=== PATIENT | female | born 1995 | race Caucasian/White ===

== ENCOUNTER 2023-08-30 18:01 | Outpatient (CLI) | payer OTHER, SELFPAY ==
--- NOTE | 2023-08-30 18:02 | PM.PROC.1 ---
Procedures Date/Time Date of procedure: 08/30/23 Time of procedure: 18:01 General Procedure description: NST: Patient here for NST for decreased movement @ 26w Baseline:145 Variability: moderate Accelerations: present Decelerations: none Impression: Reactive NST Plan: -Reviewed reactive NST and reassuring movement on monitors. -Reviewed expectant movement in third trimester. -Reviewed kick counts to do as needed. -follow up with provider as scheduled.
== END 2023-08-30 19:20 | disposition home or self-care (01) ==
LOC: LABOR 18:16 → OB 09-03 08:26
PROVIDERS: Referring Provider Obstetrics & Gynecology; Visit Provider Obstetrics & Gynecology
DX: O36.8120 Decreased fetal movements, second trimester, not applicable or unspecified (principal); Z3A.26 26 weeks gestation of pregnancy
CPT/HCPCS: 59025; G0378; G0379

== ENCOUNTER → 2023-10-22 15:25 | Outpatient (CLI) | payer OTHER, SELFPAY ==
--- NOTE | 2023-10-22 | DI.US.S_ITS ---
PROCEDURE: US OB LIMITED INDICATIONS: GROWTH; BPP OUTSIDE/PRIOR DATING DATA: Last menstrual period (LMP): 02/25/2023. LMP-based estimated date of delivery (DARRYN): 12/08/2023. First dating scan (date and location): Not available. Estimated date of delivery (DARRYN) from first dating scan: Not available. TECHNIQUE: Real-time scanning was performed of the fetus, with image documentation and biometric measurements. Biophysical profile was also obtained. Endovaginal scanning: Not performed COMPARISON: Outside Facility, [facility], US OB ANATOMICAL, 07/23/2023, 8:18. FINDINGS: General: A single living intrauterine gestation is present. Presentation: Vertex. Placenta: Placental position is posterior right , without previa. Amniotic fluid index: 9.9 cm, normal range is 5-24 cm. Single deepest vertical pocket is 3.2 cm. heart rate: 152 beats per minute. Maternal cervical canal: Not visualized. biometrics: Biparietal diameter: 33 weeks 1 day Head circumference: 33 weeks 1 day Abdominal circumference: 32 weeks 3 days Femur length: 33 weeks 5 days Clinically estimated gestational age: 33 weeks 2 days Composite gestational age from present scan: 33 weeks 1 day Estimated weight and percentile: 2088 g; 32% for gestational age. Other: Right renal pelvis measures 3.5 mm. Left renal pelvis measures 4.0 mm. Both are within normal limits. IMPRESSION: 1. A single living IUP with appropriate interval growth. 2. weight is 32% for gestational age. We strive to produce accurate, complete, and clear reports of imaging services. To assist us in improving patient care, this report was composed using standard report templates and voice recognition software. Therefore, it may contain abnormal punctuation, insertions and/or omissions. Occasional wrong-word or sound-alike substitutions may occur. Though we review the report and make efforts to correct it, we do recommend that the report be read carefully in proper context to recognize any text inaccuracies. Dictated by: Koffi Holguin M.D. on 10/23/2023 at 17:04 Approved by: Koffi Holguin M.D. on 10/24/2023 at 8:25
== END ==
PROVIDERS: PCP Family Medicine; Referring Provider Advanced Practice Midwife; Visit Provider Advanced Practice Midwife
DX: O13.3 Gestational [pregnancy-induced] hypertension without significant proteinuria, third trimester (principal); Z3A.33 33 weeks gestation of pregnancy
CPT/HCPCS: 76815

== ENCOUNTER 2023-11-09 11:25 | Outpatient (CLI) | payer OTHER, SELFPAY ==
[2023-11-09 12:21] LABS: Add Manual Diff / Slide Review NO; Basophils Absolute Auto 0 /uL (0-100); Basophils Percent Auto 0.3 % (0-2); Eosinophils Absolute Auto 100 /uL (0-450); Eosinophils Percent Auto 0.6 % (2-4); Hematocrit 35.5 % (36-46); Hemoglobin 12.4 g/dL (12.0-16.0); Lymphocytes Absolute Auto 1800 /uL (1100-4500); Lymphocytes Percent Auto 18.2 % (25-40); Mean Corpuscular HGB Conc 34.9 % (30-36); Mean Corpuscular Hemoglobin 29.8 PG (26-34); Mean Corpuscular Volume 85.4 fL (80-100); Monocytes Absolute Auto 500 /uL (0-900); Monocytes Percent Auto 5.3 % (3-14); Neutrophils Absolute Auto 7400 /uL (1500-7000); Neutrophils Percent Auto 75.6 % (50-75); Platelet Count 193 X10^3/uL (150-400); Red Blood Cell Count 4.16 X10^6/uL (4.0-5.2); Red Cell Distribution Width 13.6 % (11.6-14.8); White Blood Cell Count 9.8 X10^3/uL (4.5-11.0)
[2023-11-09 12:28] LABS: Alanine Aminotransferase 16 IU/L (<35); Albumin 3.8 g/dL (3.5-5.0); Albumin Globulin Ratio 1.2 (1.0-2.8); Alkaline Phosphatase 72 U/L (38-126); Aspartate Aminotransferase 20 IU/L (14-36); BUN Creatinine Ratio 14.3 (6-22); Bilirubin Total 0.4 mg/dL (0.2-1.3); Blood Urea Nitrogen 7 mg/dL (7-17); Calcium 8.8 mg/dL (8.4-10.2); Carbon Dioxide 19 mmol/L (22-32); Chloride 108 mmol/L (98-107); Estimated Glomerular Filt Rate > 60 mL/min (>60); Globulin 3.2 g/dL (1.7-4.1); Glucose 118 mg/dL (70-100); HEMOLYSIS < 15 (0-50); Potassium 3.6 mmol/L (3.4-5.1); Sodium 134 mmol/L (137-145)
[2023-11-09 13:03] LABS: Creatinine Urine Random 20.9 mg/dL; Protein (Total) Urine Random 15 mg/dL (0-12); Protein Creatinine Ratio Urine 0.71 GRAM/24H
== END 2023-11-09 12:19 | disposition home or self-care (01) ==
LOC: LABOR 12:17 → OB 11-12 11:19
PROVIDERS: Obstetrics & Gynecology; PCP Family Medicine; Referring Provider Family Medicine; Visit Provider Family Medicine
DX: O13.3 Gestational [pregnancy-induced] hypertension without significant proteinuria, third trimester (principal); Z3A.35 35 weeks gestation of pregnancy
CPT/HCPCS: 59025; 80053; 82570; 84156; 85025; G0378; G0379

== ENCOUNTER → 2023-11-12 14:14 | Outpatient (CLI) | payer OTHER, SELFPAY ==
--- NOTE | 2023-11-12 14:15 | DI.US.S_ITS ---
PROCEDURE: US OB LIMITED INDICATIONS: GROWTH CHECK OUTSIDE/PRIOR DATING DATA: Last menstrual period (LMP): 03/03/2023 LMP-based estimated date of delivery (DARRYN): 12/08/2023. First dating scan (date and location): 10/22/2023. Estimated date of delivery (DARRYN) from first dating scan: 12/08/2023. TECHNIQUE: Real-time scanning was performed of the fetus, with image documentation and biometric measurements. [facility], 10[facility]23, 16:00. FINDINGS: General: A single living intrauterine gestation is present. Presentation: Vertex. Placenta: Placental position is fundal , without previa. Amniotic fluid index: 10.9 cm, normal range is 5-24 cm. Single deepest vertical pocket is 3.4 cm. heart rate: 135 beats per minute. Maternal cervical canal: Not well seen cm long. Normal lower limit is 2.5 cm. biometrics: Biparietal diameter: 34 weeks 6 days Head circumference: 35 weeks 6 days Abdominal circumference: 35 weeks 1 day Femur length: 36 weeks Clinically estimated gestational age: 36 weeks 2 days Composite gestational age from present scan: 35 weeks 3 days Estimated weight and percentile: 2686 g; 38th percentile Other: Not applicable. IMPRESSION: Single living IUP redemonstrated and interval growth is within normal limits. We strive to produce accurate, complete, and clear reports of imaging services. To assist us in improving patient care, this report was composed using standard report templates and voice recognition software. Therefore, it may contain abnormal punctuation, insertions and/or omissions. Occasional wrong-word or sound-alike substitutions may occur. Though we review the report and make efforts to correct it, we do recommend that the report be read carefully in proper context to recognize any text inaccuracies. Dictated by: Darrell AYERS Interpreted: Antonette Murcia MD on 11/12/2023 at 16:06 Transcribed by: GEOVANY on 11/12/2023 at 16:07 Approved by: Antonette Murcia M.D. on 11/12/2023 at 17:09
== END ==
PROVIDERS: PCP Family Medicine; Referring Provider Advanced Practice Midwife; Visit Provider Advanced Practice Midwife
DX: O13.3 Gestational [pregnancy-induced] hypertension without significant proteinuria, third trimester (principal); Z3A.35 35 weeks gestation of pregnancy
CPT/HCPCS: 76815

== ENCOUNTER 2023-11-16 09:58 | Observation (INO) | payer OTHER, SELFPAY ==
[2023-11-16 11:09] LABS: Platelet Count 173 X10^3/uL (150-400)
[2023-11-16 11:16] LABS: Protein (Total) Urine Random 16 mg/dL (0-12); Protein Creatinine Ratio Urine 1.23 GRAM/24H
[2023-11-16 11:37] LABS: Alanine Aminotransferase 17 IU/L (<35); Albumin 3.6 g/dL (3.5-5.0); Albumin Globulin Ratio 1.2 (1.0-2.8); Alkaline Phosphatase 76 U/L (38-126); Aspartate Aminotransferase 20 IU/L (14-36); BUN Creatinine Ratio 11.8 (6-22); Bilirubin Total 0.3 mg/dL (0.2-1.3); Blood Urea Nitrogen 6 mg/dL (7-17); Calcium 8.6 mg/dL (8.4-10.2); Carbon Dioxide 22 mmol/L (22-32); Chloride 108 mmol/L (98-107); Estimated Glomerular Filt Rate > 60 mL/min (>60); Globulin 3.1 g/dL (1.7-4.1); Glucose 71 mg/dL (70-100); HEMOLYSIS < 15 (0-50); Potassium 3.9 mmol/L (3.4-5.1); Sodium 135 mmol/L (137-145); Total Protein 6.7 g/dL (6.3-8.2)
--- NOTE | 2023-11-16 14:02 | PC.NURSE ---
1129: Called and spoke with Sandy WILCOX, updated on labs. Plan to move induction to Sunday. Called patient and discussed. She is agreeable to POC.
== END 2023-11-16 10:50 | disposition home or self-care (01) ==
LOC: LABOR 10:01
PROVIDERS: Student in an Organized Health Care Education/Training Program; Admitting Provider Family Medicine; PCP Family Medicine; Referring Provider Family Medicine; Visit Provider Family Medicine
DX: O13.3 Gestational [pregnancy-induced] hypertension without significant proteinuria, third trimester (principal); Z3A.36 36 weeks gestation of pregnancy
CPT/HCPCS: 36415; 59025; 80053; 82570; 84156; 85049; G0378; G0379

== ENCOUNTER 2023-11-16 19:07 | Inpatient (IN) | payer OTHER, SELFPAY ==
--- NOTE | 2023-11-16 19:35 | P.HPOB_ITS ---
OB HPI Date/Time Date of admission: 11/16/23 Date Patient Seen: 11/16/23 Time Patient Seen: 19:20 History of Present Condition Chief complaint: INDUCTION : 1 Para: 0 Estimated Date of Delivery: 12/08/23 Estimated Gestational Age (weeks): 36.6 Narrative: Kenyetta Arriaza is a 28 year old female @ 36wks 6days by LMP concordant with early US here for induction of labor for preeclampsia. Early care with OB at [facility]. Transferred into [facility] care at 29 weeks. Developed GHTN at [id number] (10/12/23) and was started on nifedipine at which time care was co-managed with OBs at . Dose was increased to 60mg at [id number] (11/05/23). Bi-weekly testing and weekly serum labs remained normal and reassuring. Urine Pr:Cr became diagnostic of preeclampsia at 35wks 6days (11/07/23). Normal growth US at 33 and 36wks with 11/12/23 EFW 2686grams/38th%. +FM. No cramping, vaginal bleeding or leaking of fluid. No headache, vision changes, RUQ pain or significant edema. Partner is present and supportive. Discussed labs today with OB Back-up who recommended IOL tonight vs. in 3 days at 37.2wks, as previously scheduled. Indications Indication for induction OB: gestational HTN/pre-eclampsia History of Present care: good care, initiated at week # (8), number of visits (16) and pounds weight gain (40) Dating criteria: LMP confirmed by 1st trimester US Ultrasounds: normal mid trimester US Obstetrical complications: preeclampsia Preadmission Labs Blood type: 0 (-) negative -: Antibody screen: negative, GBS status: negative, HBsAG: negative, HIV: negative and RPR/VDLR: negative -: Chlamydia screen: not detected and Gonorrhea screen: not detected -: Rubella: immune and Varicella: immune HCT: 34.6 HCAB: negative Cell-free DNA: Negative 1 hr GTT: 107 Evaluation Evaluation Baseline heart rate: 155 Variability: Moderate (11-25) monitor accelerations: Present Monitor Decelerations: Absent Contraction Frequency (minutes): 0 Uterine Contraction Intensity: Mild Category of Tracing: Reactive Status: Category l Dilation (cm): 1.5 Effacement (%): 30 Dilation: 1-2 cm Effacement: 0-30% station: -3 Position of cervix: posterior Consistency: medium Joyce score: 2 PFSH Medical History Eczema PTSD (post-traumatic stress disorder) (~2015) Anxiety (~2015) ADHD (~2020) Herpes Hemorrhoid (~2016) Surgical History Anesthesia History of abdominoplasty History of breast augmentation History of hip surgery (~06/2013) History of being hospitalized (~2012) Family History Father Hypertension Mother Hodgkin's lymphoma Cancer Hypertension Mental health problem Grandfather History of kidney disease Grandfather Hyperlipidemia Hypertension Grandmother Hypertension Social History Smoking Status: Never smoker Meds Home Medications and Allergies Home Medications Medication Instructions Recorded Confirmed Type magnesium carb,citrate,oxide mg PO 09/14/23 09/14/23 History mv-mn no.97-folic 180 mcg-dha 25 tab PO 09/14/23 09/14/23 History mg-herb no.293 25 mg chewable tablet (Alive Daily Support ) Adult Low Dose Aspirin 81 mg PO DAILY 11/16/23 11/16/23 History nifedipine 60 mg tablet,extended 60 mg PO DAILY 11/16/23 11/16/23 History release 24 hr Allergies Allergy/AdvReac Type Severity Reaction Status Date / Time Sulfa (Sulfonamide AdvReac Intermediate Hives Verified 10/30/23 09:25 Antibiotics) Review of Systems Review of Systems ROS: Yes All systems reviewed with the patient and are negative except as otherwise documented OB Exam Vital signs Blood Pressure: 128/87 Pulse Rate: 94 Temperature: 36.6 F Resp Effort & Inspection: normal respiratory effort and able to speak in complete sentences Auscultation: clear to auscultation bilaterally Cardio Rate: regular rate Rhythm: regular rhythm Heart Sounds: S1 normal and S2 normal Extremities Lower extremity: Yes normal to inspection Presentation: vertex Objective Labs 11/16/23 21:00 Labs: Assessment and Plan Assessment and Plan Assessment and Plan narrative: A: Late nullipara Preeclampsia Cervical ripening indicated No indication for GBS prophylaxis Cat I FHR P: Admit for cervical ripening tonight for IOL tomorrow. Informed consent obtained and patient is in agreement with plan for rest with slow intervention tonight. Will likely place pelaez balloon with low dose pitocin in AM. Will consult for severe features and as appropriate. Reassess at 0700 or sooner, PRN.
[2023-11-16] MEDS: miSOPROStoL 25 MCG TABLET 50 MCG SL (20:18)
[2023-11-16 20:19] VITALS: BP 128/87; PULSE 94; TEMP 2.6; TEMP 36.6
[2023-11-16 21:21] LABS: Add Manual Diff / Slide Review NO; Basophils Absolute Auto 0 /uL (0-100); Basophils Percent Auto 0.2 % (0-2); Eosinophils Absolute Auto 100 /uL (0-450); Eosinophils Percent Auto 0.7 % (2-4); Hematocrit 35.8 % (36-46); Hemoglobin 12.5 g/dL (12.0-16.0); Lymphocytes Absolute Auto 2700 /uL (1100-4500); Mean Corpuscular Hemoglobin 29.6 PG (26-34); Mean Corpuscular Volume 84.6 fL (80-100); Monocytes Absolute Auto 800 /uL (0-900); Monocytes Percent Auto 6.6 % (3-14); Neutrophils Absolute Auto 8800 /uL (1500-7000); Neutrophils Percent Auto 70.5 % (50-75); Platelet Count 200 X10^3/uL (150-400); Red Blood Cell Count 4.23 X10^6/uL (4.0-5.2); Red Cell Distribution Width 13.8 % (11.6-14.8); White Blood Cell Count 12.4 X10^3/uL (4.5-11.0)
[2023-11-16 21:25] VITALS: BP 128/87
[2023-11-17] MEDS: miSOPROStoL 25 MCG TABLET 50 MCG SL ×2 (00:17→04:17)
[2023-11-17] MEDS: NIFEdipine 30 MG TAB ER 60 MG PO (07:36)
--- NOTE | 2023-11-17 07:53 | PM.OBPNLAB ---
Date/Time Date Patient Seen: 11/17/23 Time Patient Seen: 07:53 Pain Control Pain control: tolerating well Comments: Was able to rest last night, feeling occasional mild cramping. Scant brown discharge. No leaking fluid. No headache, vision changes, RUQ pain or edema. Agreeable to Pelaez balloon placement this morning. VS: BP 133/92, HR 85, T 36.4C Temporal Pelvic Exam Dilation (cm): 1.5 Effacement (%): 50 station: -3 Amniotic membrane status: Intact Comments: Pelaez balloon placed with speculum and inflated with 60mL NS. Kenyetta tolerated this well. Contractions Contractions on admission: none Monitor mode: External Contraction frequency (min): 3 Contraction duration (min): 1 Contraction pattern: Irregular Contraction intensity: Mild Status status: Category l Heart Rate Baseline: 135 Monitor Accelerations: Present Monitor Decelerations: Absent Monitor Variability: Moderate Assessment and Plan Assessment: induction ongoing Plan: other (low dose pitocin w/ pelaez balloon) Comments: Discussed with RN to begin pitocin and do NOT increase above 6mu/min. Daily CBC and CMP ordered. Encouraged Kenyetta to apply traction to the balloon every time she uses the bathroom. Will repeat CE once balloon comes out or in 12 hours, whichever comes first. Reassess in 4 hours or sooner, PRN.
[2023-11-17 09:15] LABS: Add Manual Diff / Slide Review NO; Basophils Absolute Auto 100 /uL (0-100); Basophils Percent Auto 0.7 % (0-2); Eosinophils Absolute Auto 100 /uL (0-450); Eosinophils Percent Auto 0.8 % (2-4); Hematocrit 36.1 % (36-46); Hemoglobin 12.6 g/dL (12.0-16.0); Lymphocytes Absolute Auto 1900 /uL (1100-4500); Lymphocytes Percent Auto 14.4 % (25-40); Mean Corpuscular HGB Conc 34.8 % (30-36); Mean Corpuscular Hemoglobin 29.7 PG (26-34); Mean Corpuscular Volume 85.6 fL (80-100); Monocytes Absolute Auto 600 /uL (0-900); Monocytes Percent Auto 4.7 % (3-14); Neutrophils Absolute Auto 10200 /uL (1500-7000); Neutrophils Percent Auto 79.4 % (50-75); Platelet Count 197 X10^3/uL (150-400); Red Blood Cell Count 4.22 X10^6/uL (4.0-5.2); Red Cell Distribution Width 13.9 % (11.6-14.8); White Blood Cell Count 12.9 X10^3/uL (4.5-11.0)
[2023-11-17] MEDS: LACTATED RINGERS 1,000 ML 100 ML IV ×2 (09:38→18:36)
[2023-11-17] MEDS: OXYTOCIN PREMIX 30 UNIT/500 ML PLAST..BAG IV (09:40)
[2023-11-17 09:46] LABS: Alanine Aminotransferase 19 IU/L (<35); Albumin 3.8 g/dL (3.5-5.0); Albumin Globulin Ratio 1.2 (1.0-2.8); Alkaline Phosphatase 78 U/L (38-126); Aspartate Aminotransferase 23 IU/L (14-36); Bilirubin Total 0.3 mg/dL (0.2-1.3); Blood Urea Nitrogen 9 mg/dL (7-17); Calcium 8.8 mg/dL (8.4-10.2); Carbon Dioxide 17 mmol/L (22-32); Chloride 109 mmol/L (98-107); Estimated Glomerular Filt Rate > 60 mL/min (>60); Globulin 3.2 g/dL (1.7-4.1); Glucose 141 mg/dL (70-100); HEMOLYSIS < 15 (0-50); Potassium 3.6 mmol/L (3.4-5.1); Sodium 137 mmol/L (137-145)
--- NOTE | 2023-11-17 13:10 | PM.OBPNLAB ---
Date/Time Date Patient Seen: 11/17/23 Time Patient Seen: 13:11 Pain Control Pain control: tolerating well Comments: Sitting up on a ball feeling regular uncomfortable contractions. Took a shower, which helped. Small vaginal bleeding. No leaking of fluid. Continues to deny headache, visionn changes, RUQ pain or edema. VS: BP 133/90, HR 104, T 35.7C Temporal Serum preeclampsia labs remain stable Pelvic Exam Dilation (cm): 1.5 Effacement (%): 50 station: -3 Amniotic membrane status: Intact Comments: CE deferred, Gillette balloon remains in place Contractions Monitor mode: External Pitocin rate (mU/min): 3 Contraction frequency (min): 2 Contraction duration (min): 1 Contraction pattern: Regular Contraction intensity: Mild Status status: Category l Heart Rate Baseline: 150 Monitor Accelerations: Present Monitor Decelerations: Absent Monitor Variability: Moderate Assessment and Plan Assessment: induction ongoing Plan: continuous present management Comments: Reassess in 4 hours or sooner, PRN.
--- NOTE | 2023-11-17 17:09 | PM.OBPNLAB ---
Date/Time Date Patient Seen: 11/17/23 Time Patient Seen: 17:09 Pain Control Pain control: tolerating well Comments: Awake all day and changing positions frequently, ambulating and mostly upright. Continues to feel mild cramping. Thinks she lost her mucus plug a few hours ago. VS: BP 141/87, HR 85, T 35.7C Temporal Pelvic Exam Dilation (cm): 3 Effacement (%): 75 station: -3 Amniotic membrane status: Intact Comments: bloody show Gillette balloon remains in place Contractions Monitor mode: External Pitocin rate (mU/min): 5 Contraction frequency (min): 2 Contraction duration (min): 1 Contraction pattern: Regular Contraction intensity: Mild Status status: Category l Heart Rate Baseline: 145 Monitor Accelerations: Present Monitor Decelerations: Absent Monitor Variability: Moderate Assessment and Plan Assessment: induction ongoing Plan: continuous present management Comments: Continue low dose pitocin until balloon comes out. Will deflate and d/c if still not out 18 hours after placement, though do not anticipate the need for this. Once balloon is out, increase pitocin, per protocol. Reassess in 4-6 hours.
--- NOTE | 2023-11-17 22:49 | PM.OBPNLAB ---
Date/Time Date Patient Seen: 11/17/23 Time Patient Seen: 22:50 Pain Control Pain control: tolerating well Comments: Sleeping in bed. Feels like her contractions have weakened over the last 1-2 hours. VS: BP 127/76, HR 86bpm, T 36.6C Temporal Pelvic Exam Dilation (cm): 4.5 Effacement (%): 75 station: -3 Amniotic membrane status: Intact Comments: Gillette balloon easily pulled through cervix during exam bloody show present Contractions Monitor mode: External Pitocin rate (mU/min): 6 Contraction frequency (min): 2 Contraction duration (min): 1 Contraction pattern: Regular Contraction intensity: Mild Status status: Category l Heart Rate Baseline: 125 Monitor Accelerations: Present Monitor Decelerations: Absent Assessment and Plan Assessment: induction ongoing Plan: other (Pitocin, per protocol) Comments: Encouraged rest until unable and then upright movement and frequent position changes. Reassess in 4-6 hours or sooner, PRN.
--- NOTE | 2023-11-18 03:00 | PM.OBPNLAB ---
Date/Time Date Patient Seen: 11/18/23 Time Patient Seen: 03:00 Pain Control Pain control: tolerating well Comments: Sleeping comfortably VS: BP 130/87, HR 75, T 35.9C Temporal Pelvic Exam Dilation (cm): 4.5 Effacement (%): 75 station: -3 Amniotic membrane status: Intact Comments: CE deferred Contractions Monitor mode: External Pitocin rate (mU/min): 12 Contraction frequency (min): 2 Contraction duration (min): 1 Contraction pattern: Regular Contraction intensity: Mild Status status: Category l Heart Rate Baseline: 125 Monitor Accelerations: Present Monitor Decelerations: Absent Monitor Variability: Moderate Assessment and Plan Assessment: induction ongoing Plan: continuous present management Comments: Continue pitocin titration to adequate contractions. Will consider AROM at next check if still not active. Reassess in 4 hours or sooner, PRN.
[2023-11-18] MEDS: LACTATED RINGERS 1,000 ML 100 ML IV ×2 (04:07→17:36)
--- NOTE | 2023-11-18 07:37 | PM.OBPNLAB ---
Date/Time Date Patient Seen: 11/18/23 Time Patient Seen: 07:25 Pain Control Pain control: tolerating well Comments: Has been able to sleep throughout the night. Continues to notice small amounts of vaginal bleeding. No LOF. Agreeable to AROM. VS:135/92, HR 81, T 36.3C Temporal Pelvic Exam Dilation (cm): 5 Effacement (%): 75 station: -3 Amniotic membrane status: Ruptured (AROM, clear) Contractions Monitor mode: External Pitocin rate (mU/min): 18 Contraction frequency (min): 2 Contraction duration (min): 1 Contraction pattern: Regular Contraction intensity: Mild Status status: Category l Heart Rate Baseline: 130 Monitor Accelerations: Present Monitor Decelerations: Absent Monitor Variability: Moderate Assessment and Plan Assessment: induction ongoing Plan: other Comments: Pitocin rest x 1 hours, then restart at 2 Encouraged upright movement throughout the day Continue daily labs Reassess in 4-6 hours or sooner, PRN
[2023-11-18] MEDS: NIFEdipine 30 MG TAB ER 60 MG PO (07:40)
[2023-11-18 08:18] LABS: Add Manual Diff / Slide Review NO; Basophils Absolute Auto 100 /uL (0-100); Basophils Percent Auto 0.4 % (0-2); Eosinophils Absolute Auto 100 /uL (0-450); Eosinophils Percent Auto 0.6 % (2-4); Hematocrit 36.2 % (36-46); Hemoglobin 12.4 g/dL (12.0-16.0); Lymphocytes Absolute Auto 1600 /uL (1100-4500); Lymphocytes Percent Auto 10.6 % (25-40); Mean Corpuscular HGB Conc 34.3 % (30-36); Mean Corpuscular Hemoglobin 29.4 PG (26-34); Mean Corpuscular Volume 85.7 fL (80-100); Monocytes Absolute Auto 900 /uL (0-900); Monocytes Percent Auto 5.7 % (3-14); Neutrophils Absolute Auto 12800 /uL (1500-7000); Neutrophils Percent Auto 82.7 % (50-75); Platelet Count 175 X10^3/uL (150-400); Red Blood Cell Count 4.22 X10^6/uL (4.0-5.2); Red Cell Distribution Width 13.9 % (11.6-14.8); White Blood Cell Count 15.5 X10^3/uL (4.5-11.0)
[2023-11-18 08:27] LABS: Alanine Aminotransferase 16 IU/L (<35); Albumin 3.5 g/dL (3.5-5.0); Albumin Globulin Ratio 1.1 (1.0-2.8); Alkaline Phosphatase 79 U/L (38-126); Aspartate Aminotransferase 21 IU/L (14-36); BUN Creatinine Ratio 14.3 (6-22); Bilirubin Total 0.5 mg/dL (0.2-1.3); Blood Urea Nitrogen 7 mg/dL (7-17); Calcium 8.6 mg/dL (8.4-10.2); Carbon Dioxide 24 mmol/L (22-32); Chloride 109 mmol/L (98-107); Estimated Glomerular Filt Rate > 60 mL/min (>60); Globulin 3.1 g/dL (1.7-4.1); Glucose 90 mg/dL (70-100); HEMOLYSIS < 15 (0-50); Potassium 3.8 mmol/L (3.4-5.1); Sodium 136 mmol/L (137-145); Total Protein 6.6 g/dL (6.3-8.2)
--- NOTE | 2023-11-18 12:00 | PM.OBPNLAB ---
Date/Time Date Patient Seen: 11/18/23 Time Patient Seen: 12:00 Pain Control Pain control: tolerating well Comments: Standing and hip rocking in the room. Feeling mild contractions and coping well. Continues to deny TYLER, vision changes, RUQ pain or increased edema. VS: BP 151/89, HR 86, T 37.5C Temporal Preeclampsia labs remain stable Pelvic Exam Dilation (cm): 5 Effacement (%): 75 station: -3 Amniotic membrane status: Leaking Comments: CE deferred, not yet moderate contractions Contractions Monitor mode: External Pitocin rate (mU/min): 8 Contraction frequency (min): 3 Contraction duration (min): 1 Contraction pattern: Regular Contraction intensity: Mild Status status: Category l Heart Rate Baseline: 140 Monitor Accelerations: Present Monitor Decelerations: Absent Monitor Variability: Moderate Assessment and Plan Assessment: induction ongoing Plan: continuous present management Comments: Reassess in 4 hours or sooner. Repeat CE after 2 hours of strong contractions.
--- NOTE | 2023-11-18 14:53 | PM.OBPNLAB ---
Date/Time Date Patient Seen: 11/18/23 Time Patient Seen: 14:53 Pain Control Pain control: epidural Comments: Contractions became painful at about 1215. Kenyetta tried NO2 with minimal pain relief before requesting an epidural. Pitocin had reached 8mu/min and was turned off for IVF bolus. Epidural just placed with good pain relief and pitocin restarted at 4mu/min. VS: BP 134/75, HR 91bpm, T 35.7C Temporal Pelvic Exam Dilation (cm): 5 Effacement (%): 90 station: -1 Amniotic membrane status: Leaking (clear) Comments: Gillette placed and draining clear urine. Contractions Monitor mode: External Pitocin rate (mU/min): 4 Contraction frequency (min): 3 Contraction pattern: Regular Contraction intensity: Mild Status status: Category l Heart Rate Baseline: 150 Monitor Accelerations: Present Monitor Decelerations: Absent Monitor Variability: Moderate Assessment and Plan Assessment: active labor Plan: continuous present management Comments: Reassess in 4 hours or sooner, PRN
--- NOTE | 2023-11-18 14:56 | PM.AN.REGBLK ---
Regional Block Pre-procedure Procedure: Continuous Lumbar Epidural for L&D (with dural puncture) Attending OB provider: Sandy Brasher PMH/ROS narrative: 28yo female in labor requesting epidural. See pre-anesthesia assessment for further details. ASA Class: II Labs: Hct 36.2 % (36-46) 11/18/23 08:00 Plt Count 175 X10^3/uL (150-400) 11/18/23 08:00 Medications: Current Medications Generic Name Dose Route Start Last Admin Trade Name Freq PRN Reason Stop Dose Admin Calcium Carbonate 1,000 mg 11/17/23 07:32 Calcium Carbonate 500 Mg Tab PO Q4HR PRN Dyspepsia Carboprost Tromethamine 250 mcg 11/17/23 07:32 Carboprost 250 Mcg/Ml Ampul IM Q90M PRN Bleeding Diphenhydramine HCl 25 mg 11/18/23 14:54 Diphenhydramine 50 Mg/Ml Vial IV Q10M PRN Pruritis Ephedrine Sulfate 10 mg 11/18/23 14:54 Ephedrine 50 Mg/Ml Vial IV Q5M PRN Blood pressure decrease more than 20% of baseline. Fentanyl 100 mcg 11/17/23 07:32 Fentanyl 100 Mcg/2 Ml Inj IV Q1H PRN Pain, Severe (7-10) Lactated Ringer's 1,000 mls @ 100 mls/hr 11/16/23 19:15 11/18/23 04:07 Lactated Ringers IV 100 mls/hr CONT TITO Administration Lactated Ringer's 1,000 mls @ 100 mls/hr 11/17/23 07:45 Lactated Ringers IV CONT TITO Oxytocin/Lactated Ringer's 30 unit in 500 mls @ 200 mls/hr 11/17/23 07:32 Oxytocin Premix IV CONT PRN Bleeding Protocol Tranexamic Acid 1,000 mg/ 100 mls @ 200 mls/hr 11/17/23 07:32 Sodium Chloride IV NOW PRN Bleeding Oxytocin/Lactated Ringer's 30 unit in 500 mls @ 2 mls/hr 11/17/23 07:45 11/17/23 09:40 Oxytocin Premix IV 2 milliunit/min TITRATE TITO 2 mls/hr Administration Protocol 2 MILLIUNIT/MIN FENT 2MCG/ML BUPIV 0.125% EPI 200 mcg in 100 mls @ 6 mls/hr 11/18/23 15:00 Fentanyl/Bupiv/Ns 2mcg/Ml - 0.125% EPIDURAL CONT TITO Lidocaine HCl 20 ml 11/17/23 07:32 Lidocaine 1% 20 Ml INJ INTRA-OP PRN Post Delivery Methylergonovine Maleate 0.2 mg 11/17/23 07:32 Methylergonovine 0.2 Mg Tablet PO Q6HR PRN Heavy Bleeding Methylergonovine Maleate 0.2 mg 11/17/23 07:32 Methylergonovine 0.2 Mg/Ml Vial IM NOW PRN Bleeding Misoprostol 50 mcg 11/16/23 19:15 11/17/23 04:17 Misoprostol 25 Mcg Tablet SL 50 mcg Q4H TITO Administration Misoprostol 800 mcg 11/17/23 07:32 Misoprostol 200 Mcg Tablet PA NOW PRN Bleeding Misoprostol 400 mcg 11/17/23 07:32 Misoprostol 200 Mcg Tablet SL NOW PRN Bleeding Nalbuphine HCl 2.5 mg 11/18/23 14:54 Nalbuphine 20 Mg/Ml Ampul IV Q10M PRN Pruritis Naloxone HCl 0.2 mg 11/17/23 07:32 Naloxone 0.4 Mg/Ml Vial IV Q2MIN PRN Opiate Reversal Nifedipine 60 mg 11/17/23 08:00 11/18/23 07:40 Nifedipine 30 Mg Tab Er PO 60 mg DAILY TITO Administration Ondansetron HCl 4 mg 11/17/23 07:32 Ondansetron 4 Mg/2 Ml Inj IV Q4HR PRN Nausea And Vomiting Oxytocin 10 unit 11/17/23 07:32 Oxytocin 10 Unit/Ml Vial IM NOW PRN Bleeding Sodium Chloride 10 ml 11/17/23 09:00 Sodium Chloride 0.9% Flush IV BID TITO Sodium Chloride 10 ml 11/17/23 07:32 Sodium Chloride 0.9% Flush IV PRN PRN Flush Sodium Chloride 10 ml 11/18/23 21:00 Sodium Chloride 0.9% Flush IV BID TITO Sodium Chloride 10 ml 11/18/23 14:54 Sodium Chloride 0.9% Flush IV PRN PRN Flush Zolpidem Tartrate 5 mg 11/16/23 19:12 Zolpidem 5 Mg Tablet PO BEDTIME PRN Sleep Allergies: Allergies Allergy/AdvReac Type Severity Reaction Status Date / Time Sulfa (Sulfonamide AdvReac Intermediate Hives Verified 10/30/23 09:25 Antibiotics) Procedure Insertion date: 11/18/23 Insertion time: 14:56 Prep/Local: 1% lidocaine (Chloraprep) Interspace: L3-4 Patient position: sitting Needle: 18 gauge Hustead (Dural puncture with Derrell 27g (no meds given intrathecally) ) Loss of resistance with: saline MARRY at (cm): 8 Catheter placed at SKIN (cm): 15 Catheter in SPACE (cm): 7 Insertion: Yes CSF, No Blood, Yes Paresthesia with insertion, No Paresthesia with injection and No Test dose reaction Initial Medications TEST DOSE time: 14:29 TEST DOSE: 1.5% lidocaine with epinephrine 1:200k (mL): 3 BOLUS DOSE time: 14:30 BOLUS DOSE (mL): 2 BOLUS DOSE med: other (same as test dose; also bolused from epidural infusion bag 3 ml at 14:45) Infusion INFUSION: 0.125% bupivacaine and with fentanyl 2 mcg/mL Initial rate (mL/hr): 10 Post-procedure Anesthesia date START: 11/18/23 Anesthesia time START: 14:12 Anesthesia date END: 11/19/23 Anesthesia time END: 00:27 Post-procedure Anesthesia Assessment: Yes CV function: HR/BP stable, Yes Resp function: RR/sat/airway adequate, Yes Post-op hydration adequate, Yes Pain control adequate, Yes Nausea & vomiting absent, Yes Temperature > 36 C, Yes Mental status appropriate and No Anesthesia complications
[2023-11-18] MEDS: OXYTOCIN PREMIX 30 UNIT/500 ML PLAST..BAG IV (17:38)
--- NOTE | 2023-11-18 18:59 | PM.OBPNLAB ---
Date/Time Date Patient Seen: 11/18/23 Time Patient Seen: 19:00 Pain Control Pain control: epidural Comments: Remains comfortable with an epidural in place. VS: BP 126/67, HR 87bpm, T 35.9C Temporal Pelvic Exam Dilation (cm): 6 Effacement (%): 90 station: -1 Amniotic membrane status: Leaking (clear) Comments: caput palpated Contractions Monitor mode: External Pitocin rate (mU/min): 12 Contraction frequency (min): 3 Contraction duration (min): 1 Contraction pattern: Regular Contraction intensity: Mild Status status: Category ll Heart Rate Baseline: 145 Monitor Accelerations: Present Monitor Decelerations: Variable (rare) Monitor Variability: Moderate Assessment and Plan Assessment: active labor (IOL for preeclampsia) and other (ROM x 12 hours without sx of infection) Plan: continuous present management Comments: Continue pitocin titration to adequate contraction pattern. Reassess in 4 hours or sooner, PRN.
[2023-11-18] MEDS: ONDANSETRON 4 MG/2 ML INJ IV (21:31)
--- NOTE | 2023-11-18 23:29 | PM.OBPNLAB ---
Date/Time Date Patient Seen: 11/18/23 Time Patient Seen: 23:30 Pain Control Pain control: epidural Comments: Kenyetta is feeling feverish and noticing increased rectal pressure. She is still feeling the effects of her epidural primarily on her right side and has increased sensation on her left, though coping well. Vitals: BP: 139/75 HR: 121 BPM Temp: 101.7 F (axillary) Maternal fever of 101.7F (@ 2250), then 101.2 F (@ 2322) and maternal WBC of 15.5 this am Pelvic Exam Dilation (cm): 10 Effacement (%): 100 station: +2 Amniotic membrane status: Leaking (clear) Comments: no evidence of purulent discharge Contractions Monitor mode: External Pitocin rate (mU/min): 16 Contraction frequency (min): 3 Contraction duration (min): 60 (60-80 seconds) Contraction pattern: Regular Contraction intensity: Mild Status status: Category ll Heart Rate Baseline: 150 Monitor Accelerations: Present Monitor Decelerations: Early Monitor Variability: Moderate Assessment and Plan Assessment: active labor Plan: continuous present management Comments: A: Early term nullipara preeclampsia Membranes ruptured (16.5 hours) Triple I Adequate epidural anesthesia Cat I FHR P: Ampicillin 2 g/IV q6, gentamicin 5 mg/kg IV q24 hours, and IV tylenol now Second stage now and anticipate NSVB Will call RT and peds, if indicated by FHR prior to
[2023-11-18] MEDS: ACETAMINOPHEN IV 1,000 MG/100 ML VIAL 400 MG IV (23:35)
[2023-11-18] MEDS: AMPICILLIN 2,000 MG in SODIUM CHLORIDE 0.9% 100 ML 200 MG IV (23:40)
[2023-11-19] MEDS: GENTAMICIN 360 MG in SODIUM CHLORIDE 0.9% 100 ML 109 MG IV (00:13)
--- NOTE | 2023-11-19 01:08 | PM.OBPRVD ---
Events: Pre-Eclampsia and Labor Induction Labor & Delivery Delivery date: 11/19/23 Intrapartal Events: Prolonged Labor > 20 hours, Febrile, Mild Preeclampsia and Chorioamnionitis Cervical ripening method: other (Misoprostol and pelaez bulb ) Induction method: per pitocin protocol (And AROM) Delivery augmentation: pitocin Delivery monitor: external FHT and external uterine Route of delivery: L&D Laceration Description: None Estimated blood loss (mL): 100 Anesthesia Type: Epidural Narrative: Kenyetta pushed for a short second stage of 45 minutes. Ampicillin was completed and Gentamicin was running at delivery. FHR was category II with periodic variable decelerations throughout second stage but overall reassuring. NSVB of a viable male in KEIRY position with easy delivery of the shoulders. CNM and FOB with hands on at and infant was placed on maternal abdomen immediately after delivery. AMTSL initiated after delivery of anterior shoulder with IV pitocin running at 999 ml/hr. Cord clamping was delayed until cord stopped pulsing at approximately 10 minutes of life at which time FOB cut cord. Cord blood sample was collected. Placenta delivered spontaneously and intact with maternal effort and sent to pathology. Fundus was firm and bleeding light. Perineum and vagina inspected and intact. EBL of 100 mL. Mother and baby skin to skin as I left the room. IV antibiotics discontinued. [place] Baby 1: Infant gender: Male Presentation: vertex Position: Right Occiput Anterior Placenta delivery description: Spontaneous and Normal Configuration Cord Vessel Description: 3 Vessels score (1 min): 8 score (5 min): 9 weight: 2.613 kg Plan for aftercare: Routine care
[2023-11-19] MEDS: KETOROLAC 30 MG/ML VIAL IV (04:18)
[2023-11-19] MEDS: ACETAMINOPHEN 325 MG TABLET 650 MG PO ×4 (04:19→23:30)
[2023-11-19] MEDS: DERMOPLAST SPRAY 20% 60 ML 1 SPRAY TOP (04:19)
[2023-11-19] MEDS: LANOLIN OINT 7 GM 1 APPLIC TOP (04:20)
[2023-11-19] MEDS: NIFEdipine 30 MG TAB ER 60 MG PO (08:59)
[2023-11-19] MEDS: IBUPROFEN 600 MG TABLET PO ×3 (11:06→23:30)
[2023-11-19 23:00] VITALS: BP 118/83; PULSE 94; RESP 18; TEMP 36.6
[2023-11-20] MEDS: ACETAMINOPHEN 325 MG TABLET 650 MG PO (05:00)
[2023-11-20] MEDS: IBUPROFEN 600 MG TABLET PO (05:00)
--- NOTE | 2023-11-20 07:45 | P.DS_ITS ---
Discharge Providers Provider Date of admission: 11/16/23 19:07 Discharge Date: 11/20/23 Primary care physician: Tish Roldan MD Consults: 11/20/23 00:53 Consult to [employer] Routine Comment: Discharge provider: Sandy Brasher CNM Summary Hospital Course Date Patient Seen: 11/20/23 Time Patient Seen: 07:45 Diagnoses: Normal vaginal delivery preeclampsia, third trimester Hospital Course: PPD1: Stable s/p NSVB with intact perineum. Voiding, ambulating and independently. Tolerating a general diet. Pain is well controlled with ibuprofen and Tylenol. Vaginal bleeding is light, without clots. Continues to deny headache, vision changes and RUQ pain. Feeling well and eager for discharge to home this morning. Peripartum Data Infant Delivery Method: Natural Vaginal Laceration Description: None Episiotomy description: None Procedures: O80 complications: none 1: Gender: Male Disposition of : home Discharge Diagnosis (1) Encounter for full-term uncomplicated delivery: Status: Acute Problem Details: Routine posptartum course (2) Preeclampsia: Status: Acute Problem Details: labs stable and normotensive on nifedipine Status at Discharge Cognitive/behavioral status at discharge: oriented and calm Functional status at discharge: independent ambulation Overall status at discharge: patient is progressing back to baseline Time Spent with Patient Time attestation: Total time spent providing and/or coordinating discharge services: Objective Labs 11/18/23 08:00 11/18/23 08:00 Exam Vital Signs (past 8 hours): VS: BP 118/83, 94, T 97.8F Temporal Other: Fundus firm @ U-1, lochia small, no clots. Pernium intact. Extrem Right lower extremity: full ROM, edema Details: non-pitting and 1+, lower leg, ankle and foot Left lower extremity: full ROM, edema Details: non-pitting and 1+, lower leg, ankle and foot Psych Appearance: grossly normal and well kempt Mental Status: mental status grossly normal Mood: congruent mood Affect: normal affect Discharge Plan Discharge Plan Patient Disposition: Home Discharge orders & Medications Prescriptions: New nifedipine 30 mg Tablet Extended Release 24hr 30 mg PO DAILY 14 Days Qty: 14 0RF ibuprofen 600 mg Tablet 600 mg PO Q6HR PRN (Reason: Pain, Mild (1-3)) 14 Days Qty: 60 0RF Continued Alive Daily Support 180 mcg-25 mg- 25 mg tablet,chewable See Rx Instructions .ROUTE .COMPLEX Rx Instructions: Take as directed magnesium carb,citrate,oxide 300 mg magnesium tablet See Rx Instructions .ROUTE .COMPLEX Rx Instructions: Take as directed Discontinued nifedipine 60 mg tablet extended release 24hr 60 mg PO DAILY Follow up/Referrals: Sandy Brasher CNM [[employer]] - (5 day BP check in office- 11/23/23 @ 3pm 2 week follow-up phone call 11/30/23 @ 1:30pm 6 week follow-up in office 12/31/23 @ 2pm) Tish Roldan MD [Primary Care Provider] - Diet/Activity/Treatments Diet: Diet as Tolerated and Regular Activity: bed rest x 2 weeks, pelvic rest x 6 weeks Skin/Wound/Dressing Care Report to your healthcare provider any signs of infection, such as:: chills, fever, increased pain, unusual drainage and unusual redness Visit Report/Discharge Packet Instructions: Depression Stand Alone Forms: Patient Portal/API, Stroke Signs & Symptoms Discharge Data Primary Care Provider: Tish Roldan
[2023-11-20] MEDS: NIFEdipine 30 MG TAB ER PO (09:22)
== END 2023-11-20 11:15 | disposition home or self-care (01) | DRG 805 ==
PROVIDERS: Admitting Provider Nurse Practitioner Obstetrics & Gynecology; PCP Family Medicine; Referring Provider Nurse Practitioner Obstetrics & Gynecology; Visit Provider Nurse Practitioner Obstetrics & Gynecology
DX: O14.04 Mild to moderate pre-eclampsia, complicating childbirth (principal); O41.1230 Chorioamnionitis, third trimester, not applicable or unspecified; Z37.0 Single live birth; O13.4 Gestational [pregnancy-induced] hypertension without significant proteinuria, complicating childbirth; Z3A.36 36 weeks gestation of pregnancy; O63.1 Prolonged second stage (of labor); O13.3 Gestational [pregnancy-induced] hypertension without significant proteinuria, third trimester; Z3A.37 37 weeks gestation of pregnancy
CPT/HCPCS: 36415; 59025; 59050; 59200; 80053; 82570; 84156; 85025; 85049; 86850; 86900; 86901; G0378; G0379; J0136; J0290; J1885; J2405; J2590

== ENCOUNTER → 2024-10-31 15:34 | Outpatient (CLI) | payer OTHER, SELFPAY ==
[2024-10-31 16:40] LABS: Add Manual Diff / Slide Review NO; Basophils Absolute Auto 0 /uL (0-100); Basophils Percent Auto 0.5 % (0-2); Eosinophils Absolute Auto 100 /uL (0-450); Eosinophils Percent Auto 1.7 % (2-4); Hematocrit 40.5 % (36-46); Hemoglobin 14.1 g/dL (12.0-16.0); Lymphocytes Absolute Auto 2200 /uL (1100-4500); Lymphocytes Percent Auto 38.1 % (25-40); Mean Corpuscular HGB Conc 34.9 % (30-36); Mean Corpuscular Hemoglobin 29.2 PG (26-34); Mean Corpuscular Volume 83.8 fL (80-100); Monocytes Absolute Auto 400 /uL (0-900); Neutrophils Absolute Auto 3200 /uL (1500-7000); Neutrophils Percent Auto 53.7 % (50-75); Platelet Count 223 X10^3/uL (150-400); Red Blood Cell Count 4.84 X10^6/uL (4.0-5.2); Red Cell Distribution Width 12.8 % (11.6-14.8); White Blood Cell Count 5.9 X10^3/uL (4.5-11.0)
[2024-10-31 17:02] LABS: HEMOLYSIS < 15 (0-50); Iron 104 ug/dL (37-170)
[2024-10-31 17:04] LABS: Cholesterol 142 mg/dL (140-199); HDL Cholesterol 39 mg/dL (40-60); LDL Cholesterol Calculated 80 mg/dL (<100); Triglycerides 114 mg/dL (35-150)
[2024-10-31 17:15] LABS: Percent Iron Saturation 34 % (15-50); Total Iron Binding Capacity 310 ug/dL (265-497); Transferrin 241 mg/dL (206-381)
[2024-10-31 17:34] LABS: TSH w/ Reflex to FT4 1.19 uIU/mL (0.47-4.68)
[2024-10-31 17:39] LABS: Ferritin 29 ng/mL (6-137)
== END ==
PROVIDERS: Family Provider Family Medicine; PCP Family Medicine; Referring Provider Family Medicine; Visit Provider Family Medicine
DX: E66.9 Obesity, unspecified (principal); L65.9 Nonscarring hair loss, unspecified; R53.83 Other fatigue
CPT/HCPCS: 36415; 80061; 82728; 83540; 83550; 84443; 85025

== ENCOUNTER → 2025-02-06 11:41 | Outpatient (CLI) | payer OTHER, SELFPAY ==
[2025-02-06 13:26] LABS: HCG Quantitative /Beta subunit 90.32 mIU/mL
== END ==
PROVIDERS: Family Provider Family Medicine; PCP Family Medicine; Referring Provider Family Medicine; Visit Provider Family Medicine
DX: Z34.90 Encounter for supervision of normal pregnancy, unspecified, unspecified trimester (principal)
CPT/HCPCS: 36415; 84702

== ENCOUNTER → 2025-03-27 16:38 | Outpatient (CLI) | payer OTHER, SELFPAY ==
--- NOTE | 2025-03-27 16:39 | DI.US.S_ITS ---
PROCEDURE: US OB <= 14 WEEKS FETUS INDICATIONS: OVARIAN CYST OUTSIDE/PRIOR DATING DATA: Last menstrual period (LMP): 01/10/2025. LMP-based estimated date of delivery (DARRYN): 10/17/2025. TECHNIQUE: Real-time scanning was performed of the fetus and maternal pelvic organs, with image documentation. Endovaginal scanning was also performed to better visualize the fetus and maternal ovaries. COMPARISON: None. FINDINGS: Intrauterine gestation is seen, but not evaluated on this ultrasound focused on the ovary. Uterus measures 11.3 x 6.6 x 5.5 cm. Right ovary has a corpus luteum cyst. Left ovary is enlarged, with a simple appearing 4.9 x 6.8 cm cyst. Small debris without definite soft tissue is seen. IMPRESSION: Intrauterine gestation is seen, not evaluated on this ultrasound that is focused on the ovary. The left ovary is enlarged. There is a cyst measuring 6.8 x 4.9 cm containing debris, no measurable soft tissue component. Attention on follow-up is advised. This finding can predispose to torsion. Dictated by: Leoncio Joseph M.D. on 03/27/2025 at 18:29 Approved by: Leoncio Joseph M.D. on 03/27/2025 at 18:33
== END ==
PROVIDERS: Family Provider Family Medicine; PCP Family Medicine; Referring Provider Advanced Practice Midwife; Visit Provider Advanced Practice Midwife
DX: O34.81 Maternal care for other abnormalities of pelvic organs, first trimester (principal); N83.11 Corpus luteum cyst of right ovary; N83.202 Unspecified ovarian cyst, left side; Z3A.00 Weeks of gestation of pregnancy not specified
CPT/HCPCS: 76801; 76817

== ENCOUNTER → 2025-06-05 09:27 | Outpatient (CLI) | payer OTHER, SELFPAY ==
--- NOTE | 2025-06-05 09:29 | DI.US.S_ITS ---
PROCEDURE: US OB >= 14 WEEKS FETUS INDICATIONS: Anatomy scan OUTSIDE/PRIOR DATING DATA: Last menstrual period (LMP): 01/11/2025. LMP-based estimated date of delivery (DARRYN): 10/18/2025. First dating scan (date and location): 03/10/2025. Estimated date of delivery (DARRYN) from first dating scan: 10/16/2025. The calculations are made using the LMP DARRYN of 10/18/2025. TECHNIQUE: Real-time scanning was performed of the fetus, with image documentation and biometric measurements. Endovaginal scanning: Not performed COMPARISON: None. FINDINGS: General: A single living intrauterine gestation is present. Presentation: Breech. Placenta: Placental position is anterior fundal, without previa. Amniotic fluid index: 11.7 cm, normal range is 5-24 cm. Single deepest vertical pocket is 4 cm. heart rate: 158 beats per minute. Maternal cervical canal: 3 cm long. Normal lower limit is 2.5 cm. Maternal left ovary: 5.9 x 5.5 x 6.4 cm simple appearing cyst. biometrics: Biparietal diameter: 4.6 cm, 20 weeks 0 days Head circumference: 18.3 cm, 20 weeks 5 days Abdominal circumference: 15.9 cm, 21 weeks 0 days Femur length: 3.5 cm, 21 weeks 1 day Clinically estimated gestational age: 20 weeks 5 days Composite gestational age from present scan: 20 weeks 5 days Estimated weight and percentile: 394 g, 63rd percentile Anatomic survey: Neuro: Ventricles are non-dilated at less than 10 mm. Cisterna magna is normal at 3-11 mm. Cerebellum is normal in size and morphology. Nuchal skin fold: Normal at less than 6 mm between 14-21 weeks gestational age. Face: Nose and lips, facial profile are normal. Spine: No evidence for spina bifida. Heart: 4-chambered heart is present, with normal ventricular outflow tracts. Diaphragm: Diaphragm is intact. Stomach: Left-sided stomach is present. Kidneys: No hydronephrosis. Normal is less than 5 mm in 2nd trimester, less than 7 mm in 3rd trimester. Cord: 3-vessel cord has orthotopic insertion. Bladder: Normal in size. Extremities: All 4 extremities identified. IMPRESSION: Single living intrauterine gestation at 20 weeks 5 days. Estimated gestational weight of 394 g, corresponding to the 63rd percentile. Normal anatomic survey. We strive to produce accurate, complete, and clear reports of imaging services. To assist us in improving patient care, this report was composed using standard report templates and voice recognition software. Therefore, it may contain abnormal punctuation, insertions and/or omissions. Occasional wrong-word or sound-alike substitutions may occur. Though we review the report and make efforts to correct it, we do recommend that the report be read carefully in proper context to recognize any text inaccuracies. Dictated by: Justice Soria M.D. on 06/05/2025 at 10:51 Approved by: Justice Soria M.D. on 06/05/2025 at 10:59
== END ==
LOC: US 09:28
PROVIDERS: Family Provider Family Medicine; PCP Family Medicine; Referring Provider Family Medicine; Visit Provider Advanced Practice Midwife
DX: Z34.92 Encounter for supervision of normal pregnancy, unspecified, second trimester (principal); Z3A.20 20 weeks gestation of pregnancy
CPT/HCPCS: 76811